=== PATIENT | female | born 1990 | race Caucasian/White ===

== ENCOUNTER 2022-07-18 04:20 | Inpatient (IN) | payer OTHER ==
[2022-07-18] MEDS ORDERED: AMPICILLIN SODIUM 2 GM VIAL ONE (05:25)
[2022-07-18] MEDS ORDERED: AMPICILLIN - 2 GM in SODIUM CHLORIDE 100 ML IVPB ONE (05:25)
[2022-07-18] MEDS ORDERED: ELECTROLYTE-148 SOLN 1,000 ML IV SCH (06:15)
[2022-07-18 06:20] LABS: BASO % 0.8 % (0-2.0); HEMATOCRIT 37.3 % (32.4-45.2); HEMOGLOBIN 12.4 GM/dL (10.7-15.3); MCH 30.5 pg (25.7-33.7); MCHC 33.3 g/dl (32.0-36.0); MEAN CELL VOLUME 91.6 fl (80-96); MEAN PLT VOLUME 10.7 fl (7.5-11.1); MONO % 3.4 % (3.8-10.2); NEUT % 84.8 % (42.8-82.8); PLATELET COUNT 166 10^3/uL (134-434); RBC 4.07 M/mm3 (3.60-5.2); RDW 15.1 % (11.6-15.6); WHITE BLOOD COUNT 9.9 K/mm3 (4.0-10.0)
[2022-07-18 06:32] VITALS: BMI 25.7
[2022-07-18 06:47] LABS: CALCIUM 8.2 mg/dL (8.5-10.1)
[2022-07-18 06:51] LABS: CREATININE 0.5 mg/dL (0.55-1.3)
[2022-07-18 06:53] LABS: BLOOD UREA NITROGEN 5.4 mg/dL (7-18)
[2022-07-18 06:58] LABS: ACTIVATED PTT 27.3 SECONDS (25.2-36.5); INR 0.82 (0.83-1.09); PROTHROMBIN TIME (PATIENT) 9.4 SEC (9.7-13.0)
[2022-07-18] MEDS ORDERED: OXYTOCIN 20 UNITS in 0.9% NS 20 UNIT/1,000 ML INFUS.BAG IV ONE ×2 (07:05→13:24)
[2022-07-18] MEDS ORDERED: ACETAMINOPHEN 325 MG TABLET (FP) PO PRN (08:37)
[2022-07-18] MEDS ORDERED: oxyCODONE HCL 5 MG TABLET PO PRN (08:37)
[2022-07-18] MEDS ORDERED: BENZOCAINE 28 GM HEMORRHOIDAL OINTMENT TP PRN (08:37)
[2022-07-18] MEDS ORDERED: WITCH HAZEL 50% (TUCKS) 40 PAD/JAR PAD TP PRN (08:37)
[2022-07-18] MEDS ORDERED: BISACODYL 10 MG SUPP.RECT RC PRN (08:37)
[2022-07-18] MEDS ORDERED: BENZOCAINE 20% 57 GM BOTTLE TP PRN (08:37)
[2022-07-18] MEDS ORDERED: METHYLERGONOVINE MALEATE 0.2 MG/1 ML AMP IM PRN (08:37)
[2022-07-18] MEDS ORDERED: OXYTOCIN 20 UNITS in 0.9% NS 20 UNIT/1,000 ML INFUS.BAG IV SCH (08:45)
[2022-07-18 09:04] LABS: CORD BASE EXCESS -2.8 mmol/L (0-2); CORD HCO3 22.9 mmHg (20-29); CORD PCO2 42.7 mmHg (30-78); CORD pH 7.347 (7.14-7.44)
[2022-07-18] MEDS: IBUPROFEN 600 MG TABLET (FP) PO PRN (10:35)
[2022-07-18] MEDS ORDERED: IBUPROFEN 600 MG TABLET (FP) PO ONE (10:36)
[2022-07-18 11:48] LABS: HIV INTERPRETATION NEGATIVE (NEGATIVE)
[2022-07-19 08:54] LABS: BASO % 0.3 % (0-2.0); EOS % 0.1 % (0-4.5); HEMATOCRIT 33.2 % (32.4-45.2); HEMOGLOBIN 11.3 GM/dL (10.7-15.3); LYMPH % 16.3 % (8-40); MCH 31.2 pg (25.7-33.7); MCHC 34.1 g/dl (32.0-36.0); MEAN CELL VOLUME 91.6 fl (80-96); MEAN PLT VOLUME 9.8 fl (7.5-11.1); MONO % 3.9 % (3.8-10.2); NEUT % 79.4 % (42.8-82.8); PLATELET COUNT 158 10^3/uL (134-434); RBC 3.63 M/mm3 (3.60-5.2); RDW 15.2 % (11.6-15.6); WHITE BLOOD COUNT 9.9 K/mm3 (4.0-10.0)
[2022-07-19] MEDS: IBUPROFEN 600 MG TABLET (FP) PO PRN (16:36)
[2022-07-19] MEDS ORDERED: SENNOSIDES/DOCUSATE COMBO (SENNA PLUS) TABLET (UD) PO PRN (22:00)
[2022-07-19 22:37] VITALS: RESP 18
[2022-07-20 11:29] VITALS: BP 112/77; PULSE 82; TEMP 99.1
== END 2022-07-20 14:10 | disposition home or self-care (01) | DRG 807 ==
LOC: JLDR 04:20 → J3W 15:10
PROVIDERS: ADMIT Family Medicine; ATTEND Family Medicine
PROC: 10E0XZZ Delivery of Products of Conception, External Approach (ICD-10-PCS; principal; 2022-07-18)
PROC: 0KQM0ZZ Repair Perineum Muscle, Open Approach (ICD-10-PCS; 2022-07-18)
DX: O70.1 Second degree perineal laceration during delivery (principal); O99.824 Streptococcus B carrier state complicating childbirth; Z3A.39 39 weeks gestation of pregnancy; Z37.0 Single live birth
CPT/HCPCS: 36415; 36600; 59409; 80048; 82803; 85025; 85610; 85730; 86780; 86850; 86900; 86901; 87389; C9803-CS; U0003; U0005